=== PATIENT | female | born 1970 | race African-American/Black ===

== ENCOUNTER 2022-05-27 13:36 | Inpatient (IN) | payer MEDICAID ==
[~2022-05-27] VITALS: Ht 149.9 cm; Wt 78.5 kg
[2022-05-27] MEDS ORDERED: KETOROLAC 30MG/ML VIAL IV STA (16:42)
[2022-05-27] MEDS ORDERED: ONDANSETRON HCL 4MG/2ML INJ IV STA (16:42)
[2022-05-27] MEDS ORDERED: ASPIRIN 81MG TABLET PO ONE (16:45)
[2022-05-27] MEDS ORDERED: NITROGLYCERIN 0.4MG TABLET SL SL ONE (16:45)
[2022-05-27 18:03] LABS: BASOPHILS % 0.5 % (0.0-2.0); HEMATOCRIT. 37.7 % (36.0-48.0); HEMOGLOBIN. 12.5 g/dL (12.0-16.0); LYMPHOCYTES % 21.4 % (20.0-50.0); MEAN CORPUSCULAR HEMOGLOBIN 29.3 pg (28.0-32.0); MEAN CORPUSCULAR VOLUME 88.6 fL (81.0-99.0); MEAN PLATELET VOLUME 8.1 fl (7.4-10.4); MONOCYTES % 7.4 % (2.0-8.0); NEUTROPHILS % 69.7 % (40.0-76.0); PLATELET 236 x1000/uL (130-400); RED BLOOD CELL COUNT 4.25 mill/uL (4.2-5.4); RED CELL DISTRIBUTION WIDTH 14.3 % (11.6-14.6)
[2022-05-27 18:08] LABS: CLARITY URINE CLEAR (CLEAR); COLOR URINE YELLOW (YELLOW); KETONES URINE TRACE (NEGATIVE); LEUKOCYTE ESTERASE URINE NEGATIVE (NEGATIVE); NITRITE URINE NEGATIVE (NEGATIVE); OCCULT BLOOD URINE NEGATIVE (NEGATIVE); PH URINE 5.5 (4.5-8.0); PROTEIN URINE NEGATIVE (NEGATIVE); SPECIFIC GRAVITY URINE 1.021 (1.005-1.030); UROBILINOGEN URINE 0.2 E.U./dL (0.2-1.0)
[2022-05-27 18:11] LABS: CHLORIDE 106 mEq/L (98-107)
[2022-05-27 18:18] LABS: HCG SCREEN NEGATIVE
[2022-05-27] MEDS ORDERED: DIPHENHYDRAMINE 50MG/ML VIAL IV ONE (20:15)
[2022-05-27] MEDS ORDERED: PREDNISONE 20MG TABLET PO ONE (20:15)
[2022-05-27] MEDS ORDERED: LORAZEPAM 2MG/ML CPJ IV ONE (20:15)
[2022-05-27] MEDS ORDERED: MORPHINE SULFATE 2 MG/ML CPJ (NOT FOR IM USE) IV ONE (21:15)
[2022-05-27 23:30] VITALS: BP 144/84
[2022-05-28] MEDS ORDERED: LOSA25TA26 PO (00:14)
[2022-05-28] MEDS ORDERED: CLON0.1T PO (00:14)
[2022-05-28] MEDS ORDERED: ASPI-1497 PO (00:14)
[2022-05-28] MEDS ORDERED: HYDR25TA PO (00:14)
[2022-05-28] MEDS ORDERED: ONDANSETRON HCL 4MG/2ML INJ IV PRN (00:15)
[2022-05-28] MEDS ORDERED: POTASSIUM CHLORIDE 20MEQ TABLET SR PO NR (00:15)
[2022-05-28] MEDS ORDERED: MORPHINE SULFATE 2 MG/ML CPJ (NOT FOR IM USE) IV NR (00:15)
[2022-05-28] MEDS ORDERED: CLONIDINE 0.1MG TABLET PO PRN (00:15)
[2022-05-28] MEDS: GUAIFENESIN 200MG/10ML SUGAR FREE UDC PO PRN ×3 (00:43→07:58)
[2022-05-28] MEDS ORDERED: HYDROCODONE/ACETAMINOPHEN 5/325MG TABLET PO PRN (01:30)
[2022-05-28] MEDS ORDERED: NALOXONE HCL 0.4MG/ML VIAL IV PRN (01:45)
[2022-05-28 04:00] VITALS: BP 91/53
[2022-05-28 06:48] LABS: HEMATOCRIT. 38.3 % (36.0-48.0); HEMOGLOBIN. 12.7 g/dL (12.0-16.0); MEAN CORPUSCULAR HEMOGLOBIN 29.4 pg (28.0-32.0); MEAN CORPUSCULAR VOLUME 88.6 fL (81.0-99.0); MEAN PLATELET VOLUME 8.4 fl (7.4-10.4); PLATELET 244 x1000/uL (130-400); RED BLOOD CELL COUNT 4.33 mill/uL (4.2-5.4); RED CELL DISTRIBUTION WIDTH 14.4 % (11.6-14.6)
[2022-05-28 07:19] LABS: CHLORIDE 108 mEq/L (98-107)
[2022-05-28] MEDS ORDERED: ENOXAPARIN 40MG/0.4ML SYR SUBCUT SCH (09:00)
[2022-05-28] MEDS ORDERED: LOSARTAN POTASSIUM 50 MG TABLET PO SCH (09:00)
[2022-05-28] MEDS ORDERED: ASPIRIN 81MG TABLET PO SCH (09:00)
[2022-05-28 10:00] VITALS: BP 150/94
[2022-05-28 11:52] LABS: PLATELET ESTIMATE NORMAL
== END 2022-05-28 13:29 | disposition left against medical advice (07) | DRG 48 ==
LOC: ER 13:36 → MICUSO 19:00 → 8WST 05-28 00:14 → 7EST 05-28 12:31
PROVIDERS: ADMIT Internal Medicine; ATTEND Internal Medicine
DX: G90.8 Other disorders of autonomic nervous system (principal); U07.1 COVID-19; I10 Essential (primary) hypertension; E87.6 Hypokalemia; E66.9 Obesity, unspecified; Z88.0 Allergy status to penicillin; I25.2 Old myocardial infarction; Z68.34 Body mass index [BMI] 34.0-34.9, adult; Z53.29 Procedure and treatment not carried out because of patient's decision for other reasons
CPT/HCPCS: 36415; 71045; 73030; 73562; 80048; 80053; 81003; 83880; 84484; 84703; 85025; 85379; 87426; 93005; 99285; J1200; J1650; J1885; J2060; J2270; J2405; J7512